=== PATIENT | male | born 1955 | race Caucasian/White ===

== ENCOUNTER 2018-01-25 12:46 | Emergency (ER) | payer OTHER ==
[~2018-01-25] VITALS: Ht 172.7 cm; Wt 90.7 kg
[~2018-01-25 12:46] MED LIST: ASPIR 8181 M1 PO; ASPIRIN325 PO; ATORVASTATIN CA40 MG PO; BP MED; CENTRUM SILVER1 EAC4 PO; CHOLESTEROL MED; COZAAR 25 MG TA25 M1 PO; FENOFIBRATE160 MG PO; FLOMAX0.4 MG PO; IMDUR 30 MG TAB30 M1 PO; NEXIUM40 MG PO; NORCO 5-325 TA1 EACH PO; OMEGA-31000 M1 PO; PROZAC20 MG PO; TOPROL XL25 MG PO
[2018-01-25] MEDS ORDERED: KEFLEX500 M1 PO (13:36)
[2018-01-25 14:17] VITALS: BP 125/91
== END 2018-01-25 14:17 | disposition home or self-care (01) ==
LOC: M.ERS 12:46
DX: S61.411A Laceration without foreign body of right hand, initial encounter (principal); K21.9 Gastro-esophageal reflux disease without esophagitis; W22.8XXA Striking against or struck by other objects, initial encounter; Y93.89 Activity, other specified; Y92.89 Other specified places as the place of occurrence of the external cause; Y99.8 Other external cause status

== ENCOUNTER → 2018-12-26 | Outpatient (CLI) | payer OTHER ==
[~2018-12-26] MED LIST changes: +KEFLEX500 M1 PO
[2018-12-26 10:17] LABS: ALBUMIN 4.1 g/dL (3.4-5.0); ALKALINE PHOSPHATASE 68 U/L (46-116); ANION GAP 10 mmol/L (7-16); BUN 20 mg/dL (7-18); CALCIUM 8.9 mg/dL (8.5-10.1); CHLORIDE 103 mmol/L (98-107); CHOLESTEROL 174 mg/dL (<200); CO2 26 mmol/L (21-32); CREATININE 1.1 mg/dL (0.6-1.3); GLUCOSE 105 mg/dL (70-99); HDL CHOLESTEROL 28 mg/dL (>40); LDL CHOLESTEROL 80 mg/dL (<100); POTASSIUM 4.3 mmol/L (3.5-5.1); SGOT 27 U/L (15-37); SGPT 73 U/L (30-65); SODIUM 139 mmol/L (136-145); TC:HDL 6.2 Ratio (Not establshd); TOTAL BILIRUBIN 0.5 mg/dL (<0.1-1.0); TOTAL PROTEIN 7.7 g/dL (6.4-8.2); TRIGLYCERIDE 334 mg/dL (<150); VLDL 67 mg/dL (<40)
[2018-12-26 10:18] LABS: SERUM ASSESSMENT Clear
== END ==
LOC: M.LAB 09:36
PROVIDERS: Internal Medicine Cardiovascular Disease
DX: Z48.812 Encounter for surgical aftercare following surgery on the circulatory system (principal); I10 Essential (primary) hypertension; Z95.5 Presence of coronary angioplasty implant and graft